=== PATIENT | female | born 1990 | race African-American/Black ===

== ENCOUNTER 2023-07-09 00:55 | Inpatient (IN) | payer OTHER ==
[2023-07-09] MEDS: ELECTROLYTE-148 SOLN 1,000 ML IV SCH (02:20)
[2023-07-09 02:26] VITALS: BMI 31.1
[2023-07-09 02:31] LABS: BASO % 0.5 % (0-2.0); EOS % 1.3 % (0-4.5); HEMATOCRIT 32.9 % (32.4-45.2); HEMOGLOBIN 11.2 GM/dL (10.7-15.3); LYMPH % 28.9 % (8-40); MCH 31.4 pg (25.7-33.7); MEAN CELL VOLUME 92.4 fl (80-96); MEAN PLT VOLUME 8.4 fl (7.5-11.1); MONO % 9.5 % (3.8-10.2); NEUT % 59.8 % (42.8-82.8); PLATELET COUNT 228 10^3/uL (134-434); RBC 3.57 M/mm3 (3.60-5.2); RDW 14.8 % (11.6-15.6); WHITE BLOOD COUNT 8.6 K/mm3 (4.0-10.0)
[2023-07-09 02:39] LABS: INR 0.93 (0.83-1.09); PROTHROMBIN TIME (PATIENT) 10.8 SEC (9.7-13.0)
[2023-07-09 02:42] LABS: ACTIVATED PTT 24.2 SECONDS (25.2-36.5)
[2023-07-09 02:47] LABS: POTASSIUM 3.7 mmol/L (3.5-5.1)
[2023-07-09 02:49] LABS: BLOOD UREA NITROGEN 8.1 mg/dL (7-18); CALCIUM 9.8 mg/dL (8.5-10.1)
[2023-07-09 02:53] LABS: CREATININE 1.1 mg/dL (0.55-1.3)
[2023-07-09] MEDS: OXYTOCIN 30 UNITS in 0.9% NS 30 UNIT/500 ML INFUS.BAG IVPB SCH (03:40)
[2023-07-09] MEDS ORDERED: OXYTOCIN 30 UNITS in 0.9% NS 30 UNIT/500 ML INFUS.BAG IVPB ONE (03:40)
[2023-07-09] MEDS ORDERED: BUTORPHANOL TARTRATE 2 MG/ML VIAL ONE (06:12)
[2023-07-09] MEDS ORDERED: PROMETHAZINE HCL 25 MG/1 ML VIAL ONE (06:12)
[2023-07-09] MEDS: BUTORPHANOL TARTRATE 1 MG/ML VIAL IVPUSH ONE (06:20)
[2023-07-09] MEDS: PROMETHAZINE HCL 25 MG/1 ML VIAL IVPB ONE (06:20)
[2023-07-09 06:44] LABS: PHENCYCLIDINE,URINE NEGATIVE (NEGATIVE)
[2023-07-09 06:45] LABS: COCAINE, UR NEGATIVE (NEGATIVE); METHADONE, UR NEGATIVE (NEGATIVE); OPIATES, URI NEGATIVE (NEGATIVE); URINE AMPHETAMINES NEGATIVE (NEGATIVE); URINE BARBITURATES NEGATIVE (NEGATIVE); URINE BENZODIAZEPINES NEGATIVE (NEGATIVE)
[2023-07-09] MEDS ORDERED: LIDOCAINE HCL 1% PRESERVATIVE FREE - 30ML VIAL ONE (09:02)
[2023-07-09] MEDS ORDERED: OXYTOCIN 20 UNITS in 0.9% NS 20 UNIT/1,000 ML INFUS.BAG IV ONE (09:02)
[2023-07-09] MEDS ORDERED: IBUPROFEN 600 MG TABLET (FP) PO ONE (09:39)
[2023-07-09] MEDS: IBUPROFEN 600 MG TABLET (FP) PO PRN (09:45)
[2023-07-09] MEDS: OXYTOCIN 20 UNITS in 0.9% NS 20 UNIT/1,000 ML INFUS.BAG IV SCH (09:55)
[2023-07-09 09:57] LABS: CORD BASE EXCESS -1.7 mmol/L (0-2); CORD HCO3 21.8 mmHg (20-29); CORD PCO2 33.6 mmHg (30-78); CORD pH 7.43 (7.14-7.44)
[2023-07-09 10:00] LABS: CORD BASE EXCESS -3.6 mmol/L (0-2); CORD HCO3 23.3 mmHg (20-29); CORD pH 7.295 (7.14-7.44)
[2023-07-09] MEDS ORDERED: METHYLERGONOVINE MALEATE 0.2 MG/1 ML AMP IM PRN (10:35)
[2023-07-09] MEDS ORDERED: oxyCODONE HCL 5 MG TABLET PO PRN (10:35)
[2023-07-09] MEDS ORDERED: BISACODYL 10 MG SUPP.RECT RC PRN (10:35)
[2023-07-09] MEDS ORDERED: BENZOCAINE 20% 57 GM BOTTLE TP PRN (10:35)
[2023-07-09] MEDS ORDERED: BENZOCAINE 28 GM HEMORRHOIDAL OINTMENT TP PRN (10:35)
[2023-07-09] MEDS ORDERED: WITCH HAZEL 50% (TUCKS) 40 PAD/JAR PAD TP PRN (10:35)
[2023-07-09] MEDS ORDERED: FERROUS SO4 325 MG TABLET (FP) ONE (13:08)
[2023-07-09] MEDS: FERROUS SO4 325 MG TABLET (FP) PO SCH (13:37)
[2023-07-09] MEDS: ACETAMINOPHEN 325 MG TABLET (FP) PO PRN (18:41)
[2023-07-10 08:51] LABS: BASO % 0.6 % (0-2.0); EOS % 1.1 % (0-4.5); HEMATOCRIT 29.1 % (32.4-45.2); HEMOGLOBIN 9.6 GM/dL (10.7-15.3); LYMPH % 30.8 % (8-40); MCH 30.9 pg (25.7-33.7); MCHC 33.1 g/dl (32.0-36.0); MEAN CELL VOLUME 93.3 fl (80-96); MEAN PLT VOLUME 8.1 fl (7.5-11.1); NEUT % 58.5 % (42.8-82.8); PLATELET COUNT 194 10^3/uL (134-434); RBC 3.13 M/mm3 (3.60-5.2); RDW 14.7 % (11.6-15.6); WHITE BLOOD COUNT 9.8 K/mm3 (4.0-10.0)
[2023-07-10] MEDS: PRENATAL VITAMINS W/ FOLIC ACID TABLET (FP) PO SCH (09:26)
[2023-07-10 10:14] LABS: POC NITRAZINE POS
[2023-07-10] MEDS: FLU VACCINE (FLULAVAL) PF 60 MCG/0.5 ML SYRINGE 2023-2024 IM ONE (11:00)
[2023-07-10] MEDS ORDERED: SENNOSIDES/DOCUSATE COMBO (SENNA PLUS) TABLET (UD) PO PRN (22:00)
[2023-07-11 09:57] VITALS: BP 111/74; PULSE 95; RESP 20; TEMP 98.4
== END 2023-07-11 13:10 | disposition home or self-care (01) | DRG 807 ==
LOC: JDEL 00:55 → JLDR 01:45 → J3W 14:40
PROVIDERS: ADMIT Obstetrics & Gynecology; ATTEND Obstetrics & Gynecology
PROC: 0HQ9XZZ Repair Perineum Skin, External Approach (ICD-10-PCS; principal; 2023-07-09)
PROC: 10E0XZZ Delivery of Products of Conception, External Approach (ICD-10-PCS; 2023-07-09)
DX: O70.0 First degree perineal laceration during delivery (principal); Z37.0 Single live birth; Z3A.39 39 weeks gestation of pregnancy
CPT/HCPCS: 36415; 36600; 80048; 80307; 82803; 83986-QW; 85025; 85610; 85730; 86780; 86850; 86900; 86901; 90686; G0008